=== PATIENT | female | born 1935 | race Caucasian/White ===

== ENCOUNTER 2017-12-31 13:08 | Observation (INO) | payer MEDICARE ==
[~2017-12-31] VITALS: Ht 165.1 cm; Wt 69.7 kg
[2017-12-31] MEDS ORDERED: SODIUM CHLORIDE 0.9% 1,000ML IVBOLUS ONE (13:30)
[2017-12-31] MEDS ORDERED: SODIUM CHLORIDE FLUSH 10ML SYR IVF ONE (13:30)
[2017-12-31] MEDS ORDERED: SODIUM CHLORIDE 0.9% 1,000 ML IV ONE (14:00)
[2017-12-31 14:26] LABS: ALBUMIN 2.9 g/dL (3.4-5.0); ANION GAP 7 mmol/L (5-15); CALCIUM 7.5 mg/dL (8.5-10.1); CHLORIDE 109 mmol/L (98-107); CREATININE 0.71 mg/dL (0.55-1.02)
[2017-12-31 14:28] LABS: BASOPHILS # (AUTO) 0.03 x10^3/uL (0-0.1); BASOPHILS % (AUTO) 0 % (0-1); EOSINOPHILS # (AUTO) 0.01 x10^3/uL (0-0.4); EOSINOPHILS % (AUTO) 0 % (1-7); LYMPHOCYTES # (AUTO) 0.34 x10^3/uL (1-3.4); LYMPHOCYTES % (AUTO) 3 % (22-44); MD NO; MEAN CORPUSCULAR HEMOGLOBIN 30.5 pg (27.0-34.8); MEAN CORPUSCULAR HGB CONC 33.2 g/dL (32.4-35.8); MEAN CORPUSCULAR VOLUME 91.8 fL (80-100); MONOCYTES # (AUTO) 0.43 x10^3/uL (0.2-0.8); MONOCYTES % (AUTO) 4 % (2-9); NEUTROPHILS # (AUTO) 9.32 x10^3/uL (1.8-6.8); NEUTROPHILS % (AUTO) 92 % (42-75); PLATELET COUNT 196 x10^3/uL (130-400); RED BLOOD COUNT 3.71 x10^6/uL (3.82-5.3); RED CELL DISTRIBUTION WIDTH 14.6 % (9.6-15.2)
[2017-12-31 14:31] LABS: TROPONIN I < 0.015 ng/mL (0.000-0.045)
[2017-12-31] MEDS ORDERED: ALEN70TA3 PO (15:45)
[2017-12-31] MEDS ORDERED: TRAZODONE 50MG TABLET PO PRN (17:00)
[2017-12-31] MEDS ORDERED: LABETALOL 5MG/ML, 20ML IVPush PRN (17:00)
[2017-12-31] MEDS ORDERED: ONDANSETRON ODT 4 MG PO PRN (17:00)
[2017-12-31] MEDS ORDERED: ONDANSETRON 2MG/ML, 2ML IVPush PRN (17:00)
[2017-12-31] MEDS ORDERED: ACETAMINOPHEN 325 MG TABLET PO PRN (17:00)
[2017-12-31 19:15] LABS: FREE T4 (FREE THYROXINE) 1.06 ng/dL (0.76-1.46); TROPONIN I < 0.015 ng/mL (0.000-0.045)
[2017-12-31] MEDS: FAMOTIDINE 20 MG TABLET PO SCH (22:17)
[2017-12-31] MEDS: HEPARIN 5,000 UNITS/ML, 1ML SQ SCH (22:17)
[2017-12-31] MEDS: NS + 20MEQ KCL 1,000 ML IV SCH (22:18)
[2017-12-31 22:31] VITALS: BP 111/70
[2017-12-31 23:13] LABS: TROPONIN I 0.018 ng/mL (0.000-0.045)
[2017-12-31 23:26] LABS: MICROSCOPIC AUTO
[2017-12-31 23:27] LABS: CULTURE INDICATED? YES
[2017-12-31 23:52] LABS: CREATININE,URINE RANDOM 85.5 mg/dL
[2018-01-01 02:31] VITALS: BP 118/72
[2018-01-01] MEDS: HEPARIN 5,000 UNITS/ML, 1ML SQ SCH (05:14)
[2018-01-01] MEDS: NS + 20MEQ KCL 1,000 ML IV SCH (05:15)
[2018-01-01 05:26] LABS: BASOPHILS # (AUTO) 0.02 x10^3/uL (0-0.1); BASOPHILS % (AUTO) 0 % (0-1); EOSINOPHILS # (AUTO) 0.03 x10^3/uL (0-0.4); EOSINOPHILS % (AUTO) 1 % (1-7); LYMPHOCYTES # (AUTO) 0.78 x10^3/uL (1-3.4); LYMPHOCYTES % (AUTO) 16 % (22-44); MD NO; MEAN CORPUSCULAR HEMOGLOBIN 31.3 pg (27.0-34.8); MEAN PLATELET VOLUME 8.1 fL (7.4-10.4); MONOCYTES # (AUTO) 0.63 x10^3/uL (0.2-0.8); MONOCYTES % (AUTO) 13 % (2-9); NEUTROPHILS # (AUTO) 3.33 x10^3/uL (1.8-6.8); NEUTROPHILS % (AUTO) 70 % (42-75); PLATELET COUNT 174 x10^3/uL (130-400); RED BLOOD COUNT 3.41 x10^6/uL (3.82-5.3); RED CELL DISTRIBUTION WIDTH 14.5 % (9.6-15.2)
[2018-01-01 05:29] LABS: ANION GAP 6 mmol/L (5-15); CALCIUM 7.3 mg/dL (8.5-10.1); CHLORIDE 114 mmol/L (98-107); CREATININE 0.61 mg/dL (0.55-1.02)
[2018-01-01 08:09] VITALS: BP 109/69
[2018-01-01] MEDS: FAMOTIDINE 20 MG TABLET PO SCH (11:05)
== END 2018-01-01 11:39 | disposition home or self-care (01) ==
LOC: ED 15:32 → INTOOBSV 15:33 → EDIP 15:33 → ED 15:45 → 4EST 19:41
PROVIDERS: ADMIT Internal Medicine; ATTEND Internal Medicine
DX: R55 Syncope and collapse (principal); E86.0 Dehydration; R19.7 Diarrhea, unspecified; D72.829 Elevated white blood cell count, unspecified; M81.0 Age-related osteoporosis without current pathological fracture; R00.0 Tachycardia, unspecified
CPT/HCPCS: 36415; 71045; 80048; 81001; 82040; 82436; 82570; 83735; 84100; 84133; 84300; 84439; 84443; 84484; 85025; 87086; 93005; 93306; 96360; 96361; 96372; 99285; G0378; J1644; J3480; J7030

== ENCOUNTER → 2018-07-26 | Outpatient (CLI) | payer MEDICARE ==
[~2018-07-26] MED LIST: ALEN70TA3 PO
== END | disposition home or self-care (01) ==
LOC: CFH 10:05
PROVIDERS: ATTEND Licensed Practical Nurse
DX: M81.0 Age-related osteoporosis without current pathological fracture (principal); N95.8 Other specified menopausal and perimenopausal disorders
CPT/HCPCS: 77080

== ENCOUNTER 2019-07-07 11:49 | Observation (INO) | payer MEDICARE ==
[~2019-07-07] VITALS: Ht 172.7 cm; Wt 70.4 kg
--- NOTE | 2019-07-07 12:00 | NUR ---
PT BIB EMS FOR INCREASED WEAKNESS THIS AM. PT STATES SHE WAS UNABLE TO GET OUT OF BED AND FELT REALLY WEAK. PT STATES SHE WAS ACTIVE ALL DAY YESTERDAY W ADLS, FELT FINE, AND TODAY FELT REALLY WEAK. PT STATES SHE WAS ABLE TO EAT SOME BREAKFAST. PT DENIES CP, N/V/D. NO FALLS OR TRAUMA. EMS VSS, BLOOD SUGAR 85. IV ESTABLISHED. GIVE WARM BLANKET. WAITING FOR FURTHER ORDERS.
--- NOTE | 2019-07-07 12:57 | NUR ---
LAB AT BEDSIDE. PT GIVEN WATER. PT NEEDS TO VOID FOR UA. VSS
[2019-07-07 13:08] LABS: RAPID INFLUENZA A Negative (Negative); RAPID INFLUENZA B Negative (Negative)
[2019-07-07 13:12] LABS: BASOPHILS # (AUTO) 0.05 x10^3/uL (0-0.1); BASOPHILS % (AUTO) 0 % (0-1); EOSINOPHILS % (AUTO) 1 % (1-7); LYMPHOCYTES # (AUTO) 1.14 x10^3/uL (1-3.4); LYMPHOCYTES % (AUTO) 8 % (22-44); MD NO; MEAN CORPUSCULAR HEMOGLOBIN 31.7 pg (27.0-34.8); MEAN CORPUSCULAR HGB CONC 33.5 g/dL (32.4-35.8); MEAN CORPUSCULAR VOLUME 94.8 fL (80-100); MEAN PLATELET VOLUME 8.5 fL (7.4-10.4); MONOCYTES # (AUTO) 0.78 x10^3/uL (0.2-0.8); MONOCYTES % (AUTO) 5 % (2-9); NEUTROPHILS # (AUTO) 13.03 x10^3/uL (1.8-6.8); NEUTROPHILS % (AUTO) 86 % (42-75); PLATELET COUNT 146 x10^3/uL (130-400); RED BLOOD COUNT 3.83 x10^6/uL (3.82-5.3); RED CELL DISTRIBUTION WIDTH 15.6 % (9.6-15.2)
--- NOTE | 2019-07-07 13:20 | NUR ---
AMBULATED SBA TO BS, UA OBTAINED. PT VSS, POND TENDER IN PLACE. LABS DRAWN
[2019-07-07 13:28] LABS: ALBUMIN 3.7 g/dL (3.4-5.0); ANION GAP 7 mmol/L (5-15); CALCIUM 8.8 mg/dL (8.5-10.1); CHLORIDE 106 mmol/L (98-107)
[2019-07-07 13:34] LABS: ALANINE AMINOTRANSFERASE 18 U/L (12-78); ALKALINE PHOSPHATASE 64 U/L (45-117); BILIRUBIN,TOTAL 0.6 mg/dL (0.2-1.0); CREATININE 0.89 mg/dL (0.55-1.02); TOTAL PROTEIN 7.5 g/dL (6.4-8.2); TROPONIN I < 0.015 ng/mL (0.000-0.045)
[2019-07-07 14:06] LABS: MICROSCOPIC NOT IND
[2019-07-07 14:26] LABS: CULTURE INDICATED? NO
--- NOTE | 2019-07-07 14:44 | NUR ---
ASSISTED PT TO [facility]
[2019-07-07] MEDS ORDERED: SODIUM CHLORIDE 0.9%, 500ML IVBOLUS ONE (15:30)
--- NOTE | 2019-07-07 15:38 | NUR ---
GIVEN ORANGE JUICE AND CRACKERS. WILL ORDER LUNCH TRAY
[2019-07-07] MEDS ORDERED: BUTALB/APAP/CAFFEINE 50MG/325MG/40MG PO PRN (16:30)
[2019-07-07] MEDS ORDERED: GUAIFENESIN/DM 200-20MG, 10ML UDC PO PRN (16:30)
[2019-07-07] MEDS ORDERED: LABETALOL 5MG/ML, 20ML IVPush PRN (16:30)
[2019-07-07] MEDS ORDERED: ONDANSETRON 2MG/ML, 2ML IVPush PRN (16:30)
[2019-07-07] MEDS ORDERED: BACLOFEN 10 MG TABLET PO PRN (16:30)
[2019-07-07] MEDS ORDERED: ONDANSETRON ODT 4 MG PO PRN (16:30)
[2019-07-07] MEDS ORDERED: hydrALAzine 20 MG/ML, 1ML IVPush PRN (16:30)
[2019-07-07] MEDS ORDERED: CHOLECALCIFEROL 400 UNITS/ML ORAL SOL PO SCH (16:30)
[2019-07-07] MEDS ORDERED: TRAZODONE 50MG TABLET PO PRN (16:30)
[2019-07-07] MEDS ORDERED: IBUPROFEN 600 MG TABLET PO PRN (16:30)
[2019-07-07] MEDS ORDERED: ACETAMINOPHEN 325 MG TABLET PO PRN (16:30)
[2019-07-07] MEDS ORDERED: POLYETHYLENE GLYCOL 17 GM PACKET PO PRN (16:30)
[2019-07-07 17:06] LABS: FREE T4 (FREE THYROXINE) 0.98 ng/dL (0.76-1.46)
--- NOTE | 2019-07-07 17:06 | NUR ---
MEAL TRAY GIVEN. PT ATE 100%, VOIDED TO [facility]. VSS, NO FURTHER NEEDS AT THIS TIME
--- NOTE | 2019-07-07 17:11 | NUR ---
REPORT TO [facility]
[2019-07-07 17:57] VITALS: BP 115/74
[2019-07-07] MEDS: LACTATED RINGERS 1,000 ML IV SCH (18:23)
[2019-07-07] MEDS: ASCORBIC ACID 500 MG TABLET PO SCH (18:31)
[2019-07-07 19:25] VITALS: BP 125/69
[2019-07-08] MEDS: LACTATED RINGERS 1,000 ML IV SCH (00:30)
[2019-07-08 01:08] VITALS: BP 112/67
[2019-07-08 05:36] LABS: ALBUMIN 3.1 g/dL (3.4-5.0); ANION GAP 5 mmol/L (5-15); CALCIUM 8.6 mg/dL (8.5-10.1); CHLORIDE 110 mmol/L (98-107)
[2019-07-08 05:38] LABS: MEAN CORPUSCULAR HEMOGLOBIN 31.6 pg (27.0-34.8); MEAN CORPUSCULAR VOLUME 95.9 fL (80-100); PLATELET COUNT 136 x10^3/uL (130-400); RED CELL DISTRIBUTION WIDTH 15.9 % (9.6-15.2)
[2019-07-08 05:39] LABS: ALANINE AMINOTRANSFERASE 15 U/L (12-78); ALKALINE PHOSPHATASE 61 U/L (45-117); BILIRUBIN,TOTAL 0.9 mg/dL (0.2-1.0); CREATININE 0.77 mg/dL (0.55-1.02); TOTAL PROTEIN 6.5 g/dL (6.4-8.2)
[2019-07-08 06:13] LABS: BASOPHILS % (AUTO) 0 % (0-1); EOSINOPHILS # (AUTO) 0.25 x10^3/uL (0-0.4); EOSINOPHILS % (AUTO) 2 % (1-7); LYMPHOCYTES # (AUTO) 1.47 x10^3/uL (1-3.4); LYMPHOCYTES % (AUTO) 13 % (22-44); MD SCAN; MONOCYTES # (AUTO) 0.95 x10^3/uL (0.2-0.8); MONOCYTES % (AUTO) 9 % (2-9); NEUTROPHILS # (AUTO) 8.38 x10^3/uL (1.8-6.8); NEUTROPHILS % (AUTO) 76 % (42-75)
[2019-07-08 07:29] VITALS: BP 115/66
[2019-07-08] MEDS ORDERED: MULTIVITS,STRESS FORMULA 1 TABLET PO SCH (09:00)
[2019-07-08] MEDS: ASCORBIC ACID 500 MG TABLET PO SCH (11:54)
[2019-07-08 12:47] VITALS: BP 125/73
[2019-07-08] MEDS ORDERED: ASCO500T6 PO (14:57)
[2019-07-08] MEDS ORDERED: CHOL400D16 PO (14:57)
[2019-07-08] MEDS ORDERED: MULT1TAB76 PO (14:57)
== END 2019-07-08 16:21 | disposition home or self-care (01) ==
LOC: ED 14:37 → EDIP 16:09 → SUATTDRO 16:48 → 3N 17:39
PROVIDERS: ADMIT Family Medicine; ATTEND Family Medicine
DX: R53.1 Weakness (principal); R53.83 Other fatigue; R65.10 Systemic inflammatory response syndrome (SIRS) of non-infectious origin without acute organ dysfunction; H93.242 Temporary auditory threshold shift, left ear; D72.829 Elevated white blood cell count, unspecified; R68.83 Chills (without fever); Z87.891 Personal history of nicotine dependence; Z90.710 Acquired absence of both cervix and uterus
CPT/HCPCS: 36415; 71045; 71046; 80053; 81003; 83605; 83735; 84100; 84439; 84443; 84484; 85025; 87040; 87400; 93005; 97161; G0378; J7040; J7120

== ENCOUNTER 2020-06-14 12:23 | Outpatient (CLI) | payer MEDICARE ==
[~2020-06-14 12:23] MED LIST changes: +ASCO500T9 PO; +CHOL400D6 PO; +MULT1TAB76 PO
== END 2020-06-14 23:59 | disposition home or self-care (01) ==
LOC: CARD 12:23
PROVIDERS: ATTEND Psychiatry & Neurology Neurology
DX: R55 Syncope and collapse (principal)
CPT/HCPCS: 95819

== ENCOUNTER → 2020-07-10 | Outpatient (CLI) | payer MEDICARE ==
[~2020-07-10] MED LIST changes: +GADOTERATE 7.5 MMOL/15ML SYR ONE
== END | disposition home or self-care (01) ==
LOC: CFH 09:00
PROVIDERS: ATTEND Psychiatry & Neurology Neurology
DX: R43.0 Anosmia (principal); R55 Syncope and collapse
CPT/HCPCS: 70553; A9575